=== PATIENT | female | born 1995 | race African-American/Black ===

== ENCOUNTER 2019-01-02 17:56 | Emergency (ER) | payer MEDICAID ==
[~2019-01-02] VITALS: Ht 167.6 cm; Wt 105.0 kg
[2019-01-02 21:36] LABS: CLARITY URINE CLOUDY (CLEAR); COLOR URINE YELLOW (YELLOW); KETONES URINE NEGATIVE (NEGATIVE); LEUKOCYTE ESTERASE URINE 3+ (NEGATIVE); NITRITE URINE POSITIVE (NEGATIVE); OCCULT BLOOD URINE 2+ (NEGATIVE); PROTEIN URINE TRACE (NEGATIVE); SPECIFIC GRAVITY URINE 1.013 (1.005-1.030); UROBILINOGEN URINE 0.2 E.U./dL (0.2-1.0)
[2019-01-02 22:09] VITALS: BP 149/88
== END 2019-01-02 22:10 | disposition home or self-care (01) ==
LOC: ER 18:10
DX: O23.11 Infections of bladder in pregnancy, first trimester (principal); R31.0 Gross hematuria; O26.891 Other specified pregnancy related conditions, first trimester; R03.0 Elevated blood-pressure reading, without diagnosis of hypertension; Z3A.01 Less than 8 weeks gestation of pregnancy
CPT/HCPCS: 81003; 81025; 87077; 87186; 99283